=== PATIENT | male | born 1985 | race African-American/Black ===

== ENCOUNTER 2019-10-06 12:26 | Emergency (ER) | payer OTHER ==
[~2019-10-06] VITALS: Ht 182.9 cm; Wt 79.4 kg
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
[2019-10-06] MEDS: HALOPERIDOL LACTATE INJ 5 MG/ML VIAL IM ONE (13:00)
[2019-10-06] MEDS ORDERED: HALOPERIDOL LACTATE INJ 5 MG/ML VIAL ONE (13:02)
--- NOTE | 2019-10-06 13:02 | NUR ---
PT WAS GOING TO CT [facility]IA [employer]. PT WAS AGGITATED AND WOULD NOT STAY STILL. MD NOTIFIED. NEW ORDERS GIVEN AND PT TO RECEIVE MEDICATION TO CALM HIM DOWN. CT IN 20 MINS.
--- NOTE | 2019-10-06 13:09 | NUR ---
PT REC'D WATER AND SPIT AT THE OFFICERS.
--- NOTE | 2019-10-06 13:28 | NUR ---
PT LEFT FOR CT VIA GURNEY WITH MYSELF AND EMT.
--- NOTE | 2019-10-06 13:38 | NUR ---
PT RETURNED FROM CT.
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
--- NOTE | 2019-10-06 14:22 | NUR ---
PT ROLLED OVER TO THE BAY DOORS TO FACILITATE [employer] TRANSFERRING HIM FROM THE GURNEY TO THE [employer] CAR SAFELY. PT LEFT WITH ABRIL BETHEA.
[2019-10-06 14:25] VITALS: BP 146/92
== END 2019-10-06 14:25 ==
LOC: ER 12:31
DX: S00.83XA Contusion of other part of head, initial encounter (principal); F29 Unspecified psychosis not due to a substance or known physiological condition; R45.1 Restlessness and agitation; Y04.8XXA Assault by other bodily force, initial encounter; Y93.89 Activity, other specified; Y92.89 Other specified places as the place of occurrence of the external cause; Y99.8 Other external cause status
CPT/HCPCS: 70450; 96372; 99284; J1630